=== PATIENT | female | born 1950 | race Two or more races ===

== ENCOUNTER → 2022-12-05 08:00 | Outpatient (CLI) | payer OTHER ==
[~2022-12-05] VITALS: Ht 160 cm; Wt 89.8 kg
[~2022-12-05 08:00] MED LIST: ADULT LOW DOSE81 M1 PO; ARICEPT10 MG PO; CLONAZEPAM2 M1 PO; ESCITALOPRAM OXA5 MG PO; GABAPENTIN400 MG PO; LOSARTAN POTAS100 MG PO; NIFEDIPINE20 MG PO; ONGLYZA5 MG PO; SYNTHROID50 MCG PO
== END | disposition home or self-care (01) ==
LOC: LAB 08:00 → CIR.AMB 12-07 15:06 → EDSTATUS 12-07 16:15 → CIR.AMB 12-07 16:15
PROVIDERS: ATTEND Colon & Rectal Surgery
DX: I10 Essential (primary) hypertension (principal)